=== PATIENT | female | born 1985 | race Hispanic/Latino ===

== ENCOUNTER 2018-03-02 23:48 | Emergency (ER) | payer OTHER ==
[2018-03-03 00:01] VITALS: BP 109/77; PULSE 86; RESP 18; TEMP 98; O2SAT 99
--- NOTE | 2018-03-03 01:39 | ED PDOC ---
HPI: Abdomen Time Seen by Provider: 03/03/18 01:25 Chief Complaint (Nursing): Abdominal Pain Chief Complaint (Provider): abdominal pain History Per: Patient History/Exam Limitations: no limitations Onset/Duration Of Symptoms: Hrs (6) Current Symptoms Are (Timing): Still Present Location Of Pain/Discomfort: RLQ Quality Of Discomfort: Cramping, "Pain" Additional Complaint(s): 32 y/o female presents for evaluation of intermittent right lower abdominal cramping x 6 hours. Denies fever, nausea/vomiting, cough, congestion, chest pain, shortness of breath, palpitations, changes in bowel movements, urinary symptoms. Some relief provided with Advil. Past Medical History Reviewed: Historical Data, Nursing Documentation, Vital Signs Vital Signs: Last Vital Signs Temp 98 F 03/02/18 23:58 Pulse 86 03/02/18 23:58 Resp 18 03/02/18 23:58 BP 109/77 03/02/18 23:58 Pulse Ox 99 03/02/18 23:58 - Medical History PMH: No Chronic Diseases - Surgical History Surgical History: No Surg Hx - Family History Family History: States: No Known Family Hx - Living Arrangements Living Arrangements: With Family - Home Medications Home Medications: Ambulatory Orders Medication Instructions Recorded Naproxen [Naprosyn Tab] 375 mg PO Q12 PRN #20 tab 03/03/18 - Allergies Allergies/Adverse Reactions: Allergies Allergy/AdvReac Type Severity Reaction Status Date / Time No Known Allergies Allergy Verified 03/02/18 23:58 Review of Systems ROS Statement: Except As Marked, All Systems Reviewed And Found Negative Gastrointestinal: Positive for: Abdominal Pain Physical Exam - Reviewed Nursing Documentation Reviewed: Yes Vital Signs Reviewed: Yes - Physical Exam Appears: Positive for: Well, Non-toxic, No Acute Distress Head Exam: Positive for: ATRAUMATIC, NORMAL INSPECTION, NORMOCEPHALIC Skin: Positive for: Normal Color Eye Exam: Positive for: Normal appearance ENT: Positive for: Normal ENT Inspection Cardiovascular/Chest: Positive for: Regular Rate, Rhythm Respiratory: Positive for: Normal Breath Sounds Gastrointestinal/Abdominal: Positive for: Bowel Sounds, Soft, Tenderness (rlq, suprapubic). Negative for: Distended, Guarding, Rebound Back: Positive for: Normal Inspection Extremity: Positive for: Normal ROM Neurologic/Psych: Positive for: Alert, Oriented (x3) - Laboratory Results Result Diagrams: 03/03/18 02:28 03/03/18 02:28 - ECG O2 Sat by Pulse Oximetry: 99 - Progress ED Course And Treament: labs, urine, TV u/s Patient declines pain medication at this time USArad impression: right ovarian complex cyst. Follow up study in 1-2 cycles in recommended On re-eval, patient states pain still present, IV toradol given. CT was offered for further evaluation of RLQ pain including attn to appendix but patient declines at this time as pain improving and states she would like to go home. Afebrile. WBC normal. Tolerating PO Patient educated on findings, discharged with instructions to follow up with PMD and [facility] within 2-3 days Patient was given strict return precautions, including worsening RLQ pain, fever, vomiting. Patient demonstrates full understanding of discharge instructions Patient requires no further intervention in the ED and is stable for discharge at this time Disposition - Clinical Impression Clinical Impression: Ovarian cyst, Abdominal pain - Patient ED Disposition Is Patient to be Admitted: No Counseled Patient/Family Regarding: Studies Performed, Diagnosis, Need For Followup, Rx Given - Disposition Referrals: [facility] [Outside] Disposition: Routine/Home Disposition Time: 04:43 Condition: IMPROVED Prescriptions: Naproxen [Naprosyn Tab] 375 mg PO Q12 PRN #20 tab PRN Reason: Pain, Moderate (4-7) Instructions: Ovarian Cysts, Acute Abdomen (Belly Pain), Adult (DC) Forms: [employer] ([place])
[2018-03-03 02:18] LABS: VENOUS BLOOD GAS BASE EXCESS 0.6 mmol/L (0.0-2.0); VENOUS BLOOD GAS PCO2 52 mmHg (40-60); VENOUS BLOOD GAS PO2 20 mm/Hg (30-55); VENOUS BLOOD PH 7.33 (7.32-7.43)
[2018-03-03 02:33] LABS: BASO % 0.6 % (0.0-2.0); EOS % 15.6 % (0.0-4.0); HEMOGLOBIN 12.9 g/dL (12.0-16.0); LYMPH # 2.2 K/uL (1.0-4.3); LYMPH % 34.6 % (20.0-40.0); MEAN CELL VOLUME 94.7 fl (81.0-99.0); MEAN CORPUSCULAR HEMOGLOBIN 31.8 pg (27.0-31.0); MEAN CORPUSCULAR HGB CONC 33.6 g/dL (33.0-37.0); MEAN PLATELET VOLUME 9.2 fl (7.2-11.7); MONO # 0.4 K/uL (0.0-0.8); MONO % 7.1 % (0.0-10.0); NEUT # 2.6 K/uL (1.8-7.0); NEUT % 42.1 % (50.0-75.0); RBC 4.06 Mil/uL (3.80-5.20); RED CELL DISTRIBUTION WIDTH 12.5 % (11.5-14.5); WHITE BLOOD COUNT 6.3 K/uL (4.8-10.8)
[2018-03-03 02:40] LABS: ALB/GLOB RATIO 1.3 (1.0-2.1); ALBUMIN 4.3 g/dL (3.5-5.0); ALT/SGPT 26 U/L (9-52); AST/SGOT 28 U/L (14-36); BLOOD UREA NITROGEN 12 mg/dl (7-17); CALCIUM 9.3 mg/dL (8.4-10.2); GFR NON-AFRICAN AMERICAN > 60
--- NOTE | 2018-03-03 12:24 | US ---
Date of service: 03/03/2018 HISTORY: Right pelvic pain. LMP 02/10/2018. Regular cycles. COMPARISON: None available. TECHNIQUE: Transvaginal only. Real -time technique with 2D, duplex and color Doppler FINDINGS: UTERUS: Measures 2.9 x 4.5 x 7.6 cm. Normal in size and appearance. No fibroid or other mass lesion seen. ENDOMETRIUM: Measures 10.3 mm in diameter. No ultrasound findings to suggest gestational sac, fluid, debris, mass or polyp or other pathologic process within the endometrium. CERVIX: No cervical abnormality identified. RIGHT OVARY: Measures 3.2 x 3.6 x 4.1 cm. Complex cyst/mass 2.5 x 2.6 x 2.4 cm. In addition to etiology such as hemorrhagic or debris laden cyst an atypical endometrioma can assume this appearance. Normal flow. LEFT OVARY: Measures 1.8 x 2.2 x 2.6 cm. No solid mass. Normal flow. FREE FLUID: No significant free fluid noted. OTHER FINDINGS: None. IMPRESSION: Complex mass/cyst right ovary. Differential diagnostic considerations have been provided above. Follow-up recommended. Concordant results (preliminary interpretation) provided by [employer] Procedure Completed: :19. Preliminary Report: Dictated and Authenticated: 02:52. Final Interpretation: 12:19
== END 2018-03-03 04:53 | disposition home or self-care (01) ==
LOC: H.ER 23:48
DX: N83.201 Unspecified ovarian cyst, right side (principal)
CPT/HCPCS: 76830; 80053; 81025; 82803; 85025; 96374; 99283; J1885